=== PATIENT | female | born 1950 | race Caucasian/White ===

== ENCOUNTER 2017-07-26 10:17 | Day surgery (SDC) | payer OTHER ==
[~2017-07-26] VITALS: Ht 142.2 cm; Wt 57.6 kg
[~2017-07-26 10:17] MED LIST: ALL DAY ALLERGY10 M3 PO; COZAAR25 MG PO; FLEXERIL10 MG PO; LISINOPRIL5 MG PO; LOVASTATIN20 MG PO; NASONEX17 GM BOTH NARES; PRAVACHOL20 MG PO; PRILOSEC20 MG PO; SYNTHROID PO; SYNTHROID50 MCG PO; VICODIN 5-3001 EACH PO
[2017-07-26 10:39] VITALS: BP 151/85
[2017-07-26 13:36] VITALS: BP 124/64
[2017-07-26 14:23] VITALS: BP 121/66
== END 2017-07-26 14:36 | disposition home or self-care (01) ==
LOC: SDC 10:17
PROC: 0SRM0JZ Replacement of Right Metatarsal-Phalangeal Joint with Synthetic Substitute, Open Approach (ICD-10-PCS; principal; 2017-07-26)
DX: M20.21 Hallux rigidus, right foot (principal); I10 Essential (primary) hypertension; E78.5 Hyperlipidemia, unspecified; E03.9 Hypothyroidism, unspecified; K21.9 Gastro-esophageal reflux disease without esophagitis; F17.200 Nicotine dependence, unspecified, uncomplicated
CPT/HCPCS: J0690; J2250; J2405; J3010; S0020